=== PATIENT | female | born 1940 | race Two or more races ===

== ENCOUNTER 2023-12-28 12:22 | Emergency (ER) | payer OTHER ==
[~2023-12-28] VITALS: Ht 165.1 cm; Wt 68.0 kg
[2023-12-28] MEDS ORDERED: TENORMIN25 MG PO (13:35)
[2023-12-28] MEDS ORDERED: DIOVAN40 MG PO (13:35)
[2023-12-28] MEDS ORDERED: LOREEV XR2 MG PO (13:35)
[2023-12-28] MEDS ORDERED: ASA325 MG PO (13:36)
[2023-12-28] MEDS ORDERED: PNEU16DI2 IJ (13:36)
[2023-12-28] MEDS ORDERED: BRIMONIDINE TART5 M1 (13:36)
[2023-12-28] MEDS ORDERED: KETOROLAC TROMETHAMINE 30 MG VIAL IV ONE (14:00)
[2023-12-28] MEDS ORDERED: CEFTRIAXONE SODIUM 1,000 MG VIAL IV ONE (14:00)
[2023-12-28] MEDS ORDERED: KETOROLAC TROMETHAMINE 30 MG VIAL ONE (14:11)
[2023-12-28] MEDS ORDERED: CEFTRIAXONE SODIUM 1,000 MG VIAL ONE (14:11)
[2023-12-28 15:17] LABS: HEMATOCRIT 40.8 % (36.0-45.00); HEMOGLOBIN 13.8 g/dL (12.0-15.00); MEAN CORPUSCULAR HEMOGLOBIN 32.5 pg (27.00-32.0); MEAN CORPUSCULAR HGB CONC 33.9 g/dl (32.0-36.0); PLATELET COUNT 211 K/uL (150-450); RED BLOOD COUNT 4.24 M/uL (4.00-6.00); RED CELL DISTRIBUTION WIDTH 12.8 % (11.5-14.5)
[2023-12-28 15:44] LABS: C-REACTIVE PROTEIN 6.76 MG/DL (0.00-0.29)
[2023-12-28 15:55] LABS: URIC ACID 2.2 mg/dL (2.5-7.5)
[2023-12-28 15:57] LABS: ERYTHROCYTE SEDIMENTATION RATE 27 mm/hr
[2023-12-28] MEDS ORDERED: DICLOFENAC SODI75 MG PO (16:02)
[2023-12-28] MEDS ORDERED: AMOX-CLAV 875-1 EACH PO (16:02)
== END 2023-12-28 16:26 | disposition home or self-care (01) ==
LOC: ER 12:23
PROVIDERS: General Practice
DX: L03.114 Cellulitis of left upper limb (principal); I10 Essential (primary) hypertension; M06.8A Other specified rheumatoid arthritis, other specified site
CPT/HCPCS: 36415; 96372; 99282; J0696; J1885